=== PATIENT | male | born 1975 | race American Indian/Alaskan Native ===

== ENCOUNTER 2016-11-14 17:54 | Emergency (ER) | payer BC, OTHER ==
[2016-11-14 18:35] VITALS: BP 160/100
== END 2016-11-14 23:45 | disposition left against medical advice (07) ==
LOC: ED 17:54
DX: J02.9 Acute pharyngitis, unspecified (principal); Z53.21 Procedure and treatment not carried out due to patient leaving prior to being seen by health care provider

== ENCOUNTER 2016-11-15 08:02 | Inpatient (IN) | payer SELFPAY ==
[2016-11-15] MEDS ORDERED: NORVASC PO ONE (11:48)
[2016-11-15] MEDS ORDERED: TORADOL IV ONE (13:39)
[2016-11-15] MEDS ORDERED: NACL 0.9% 1000 ML 1,000 ML IV ONE (13:39)
--- NOTE | 2016-11-15 13:41 | Emergency Department Report ---
ED General Adult HPI - General Chief complaint: Sore Throat Stated complaint: SWOLLEN THROAT/LT EAR PAIN Time Seen by Provider: 11/15/16 13:32 Source: patient, RN notes reviewed Mode of arrival: Ambulatory Limitations: No Limitations - History of Present Illness Initial comments: This is a 41-year-old male, previously unknown to me. His primary care doctor is Dr. Weems. He presents to the ER complaining of left-sided neck pain, left- sided neck swelling, for the past 2 days. Symptoms are constant. He denies trismus, he denies malocclusion. He admits to cough and sore throat. He admits to mild left-sided ear discomfort and chewing. Positive sick contacts at home. To me, he denies sudden thunderclap headache. -: Gradual Location: neck Radiation: back Severity scale (0 -10): 9 Quality: aching Consistency: constant Improves with: rest Worsens with: movement Associated Symptoms: cough - Related Data Home Medications Medication Instructions Recorded Confirmed Last Taken Acetaminophen [Tylenol] 500 mg PO Q6HR 11/15/16 11/15/16 11/15/16 09:30 Lisinopril [Zestril TAB] 20 mg PO BID 11/15/16 11/15/16 11/14/16 amLODIPine [Norvasc] 10 mg PO DAILY 11/15/16 11/15/16 11/14/16 Allergies Allergy/AdvReac Type Severity Reaction Status Date / Time No Known Allergies Allergy Unverified 09/08/13 01:53 ED Review of Systems ROS: Stated complaint: SWOLLEN THROAT/LT EAR PAIN Other details as noted in HPI Constitutional: denies: fever ENT: throat pain, congestion Respiratory: see HPI Cardiovascular: denies: chest pain Gastrointestinal: denies: abdominal pain Genitourinary: denies: urgency Musculoskeletal: denies: back pain, joint swelling, arthralgia Skin: denies: rash, lesions Neurological: denies: weakness, numbness, paresthesias, confusion ED Past Medical Hx - Past Medical History Previous Medical History?: Yes Hx Hypertension: Yes - Surgical History Past Surgical History?: No - Social History Smoking Status: Current Every Day Smoker Substance Use Type: Alcohol, Marijuana, Prescribed - Medications Home Medications: Home Medications Medication Instructions Recorded Confirmed Last Taken Type Acetaminophen [Tylenol] 500 mg PO Q6HR 11/15/16 11/15/16 11/15/16 09:30 History Lisinopril [Zestril TAB] 20 mg PO BID 11/15/16 11/15/16 11/14/16 History amLODIPine [Norvasc] 10 mg PO DAILY 11/15/16 11/15/16 11/14/16 History ED Physical Exam - General Limitations: No Limitations General appearance: alert, in no apparent distress - Head Head exam: Present: atraumatic, normocephalic - Eye Eye exam: Present: normal appearance, PERRL, EOMI. Absent: nystagmus - ENT ENT exam: Present: normal exam, normal orophraynx, mucous membranes moist, TM's normal bilaterally, normal external ear exam, other (is no trismus. There is no malocclusion. There is no stridor. The patient is speaking full sentences. He is protecting his airway.) - Neck Neck exam: Present: tenderness, full ROM, lymphadenopathy, other (there is left- sided submandibular swelling, tenderness, possible induration.) - Respiratory Respiratory exam: Present: normal lung sounds bilaterally. Absent: respiratory distress, wheezes, rales, rhonchi, stridor, chest wall tenderness - Cardiovascular Cardiovascular Exam: Present: regular rate, normal rhythm, normal heart sounds, other (tachycardia has resolved on my examination). Absent: bradycardia, tachycardia, irregular rhythm, systolic murmur, diastolic murmur, rubs, gallop - GI/Abdominal GI/Abdominal exam: Present: soft, normal bowel sounds. Absent: distended, tenderness, guarding, rebound, rigid, pulsatile mass - Rectal Rectal exam: Present: deferred - Extremities Exam Extremities exam: Present: normal inspection, full ROM, normal capillary refill. Absent: tenderness, pedal edema, joint swelling, calf tenderness - Back Exam Back exam: Present: normal inspection, full ROM. Absent: tenderness, CVA tenderness (R), CVA tenderness (L), muscle spasm, paraspinal tenderness, vertebral tenderness - Neurological Exam Neurological exam: Present: alert, oriented X3, normal gait, other (Extraocular movements intact. Tongue midline. No facial droop. Facial sensation intact to light touch in the V1, V2, V3 distribution bilaterally. 5 and 5 strength in 4 extremities.. Sensation is intact to light touch in 4 extremities.). Absent : motor sensory deficit - Psychiatric Psychiatric exam: Present: normal affect, normal mood - Skin Skin exam: Present: warm, dry, intact, normal color. Absent: rash ED Course Vital Signs 11/15/16 11/15/16 11/15/16 08:20 11:49 11:58 Temperature 98.7 F Pulse Rate 101 H 92 H 92 H Respiratory 20 20 Rate Blood Pressure 196/133 182/102 Blood Pressure 182/102 [Left] O2 Sat by Pulse 100 99 Oximetry 11/15/16 11/15/16 11/15/16 12:00 13:00 14:00 Temperature Pulse Rate 85 87 91 H Respiratory 18 18 18 Rate Blood Pressure Blood Pressure 162/122 177/109 170/95 [Left] O2 Sat by Pulse 95 98 Oximetry 11/15/16 11/15/16 16:00 17:00 Temperature Pulse Rate 102 H 104 H Respiratory 18 20 Rate Blood Pressure Blood Pressure 156/94 171/84 [Left] O2 Sat by Pulse 97 99 Oximetry - Reevaluation(s) Reevaluation #1: 11/15/16 14:20 Differential diagnosis: Abscess, adenopathy, cellulitis, myositis Assessment and plan: 41-year-old male with left-sided neck pain, swelling, recent sick contacts. Currently suspect the patient most likely has a component of adenopathy. He will be treated symptomatically. He has no acute indication of airway compromise, and there is no foul or fetid odor, and there is no elevation to the base of the mouth. Therefore, I think ludwigs angina is unlikely. Nevertheless, given the clinical and beauty, we will obtain a CAT scan with IV contrast to exclude deep space neck infection/abscess. Hypertension is improved, blood pressures currently in the 160s. Reevaluation #2: 11/15/16 16:36 ct neck shows tonsillitis and possible early abscess formation. there is no stridor, patient is speaking in full sentences and clinically appears well. I have discussed the case with the pickler helper continuous improvement facilitator for primary, Dr. Lori Oliveira. She states that based on his current physical exam findings, laboratory studies, CAT scan findings that he does not require transfer or incision and drainage. Case is discussed with the hospital physician, , who accepts the patient to his service. Patient to be admitted for airway observation, blood pressure control. ED Medical Decision Making - Lab Data Result diagrams: 11/15/16 13:54 11/15/16 13:54 Vital Signs 11/15/16 11/15/16 11/15/16 08:20 11:49 11:58 Temperature 98.7 F Pulse Rate 101 H 92 H 92 H Respiratory 20 20 Rate Blood Pressure 196/133 182/102 Blood Pressure 182/102 [Left] O2 Sat by Pulse 100 99 Oximetry 11/15/16 11/15/16 11/15/16 12:00 13:00 14:00 Temperature Pulse Rate 85 87 91 H Respiratory 18 18 18 Rate Blood Pressure Blood Pressure 162/122 177/109 170/95 [Left] O2 Sat by Pulse 95 98 Oximetry Lab Results 11/15/16 11/15/16 Range/Units 13:54 13:54 WBC 12.3 H (4.5-11.0) K/mm3 RBC 5.17 H (3.65-5.03) M/mm3 Hgb 15.7 H (11.8-15.2) gm/dl Hct 45.6 (35.5-45.6) % MCV 88 (84-94) fl MCH 30 (28-32) pg MCHC 35 H (32-34) % RDW 12.9 L (13.2-15.2) % Plt Count 243 (140-440) K/mm3 Sodium 135 L (137-145) mmol/L Potassium 4.1 (3.6-5.0) mmol/L Chloride 93.7 L (98-107) mmol/L Carbon Dioxide 29 (22-30) mmol/L Anion Gap 16 mmol/L BUN 12 (9-20) mg/dL Creatinine 0.9 (0.8-1.5) mg/dL Estimated GFR > 60 ml/min BUN/Creatinine Ratio 13.33 % Glucose 247 H (75-100) mg/dL Calcium 9.1 (8.4-10.2) mg/dL Total Creatine Kinase 90 (55-170) units/L - Radiology Data Radiology results: report reviewed, image reviewed CAT scan of the neck demonstrates soft tissue swelling in the left tonsillar bed with ill-defined hypodensity, possibly early abscess formation. There is secondary mass effect with extrinsic compression of the airway and shift of the airway from left to right. There are prominence of the local jugular nodes. Minimal left subcutaneous inflammatory changes are noted. Submandibular glands are unremarkable. Critical care attestation.: If time is entered above; I have spent that time in minutes in the direct care of this critically ill patient, excluding procedure time. ED Disposition Clinical Impression: Neck pain, Elevated blood pressure Disposition: OP ADMITTED IP TO THIS HOSP Is pt being admited?: Yes Does the pt Need Aspirin: No Condition: Good Referrals: PRIMARY CARE,MD [Primary Care Provider] - 3-5 Days
[2016-11-15 14:03] LABS: Hematocrit 45.6 % (35.5-45.6); Hemoglobin 15.7 gm/dl (11.8-15.2); Mean Corpuscular HGB Conc 35 % (32-34); Mean Corpuscular Hemoglobin 30 pg (28-32); Mean Corpuscular Volume 88 fl (84-94); Platelet Count 243 K/mm3 (140-440); Red Blood Count 5.17 M/mm3 (3.65-5.03); Red Cell Distribution Width 12.9 % (13.2-15.2); White Blood Count 12.3 K/mm3 (4.5-11.0)
[2016-11-15 14:18] LABS: BUN/Creatinine Ratio 13.33; Blood Urea Nitrogen 12 mg/dL (9-20); Calcium 9.1 mg/dL (8.4-10.2); Carbon Dioxide 29 mmol/L (22-30); Chloride 93.7 mmol/L (98-107); Creatine Kinase 90 units/L (55-170); Glucose 247 mg/dL (75-100); Potassium 4.1 mmol/L (3.6-5.0); Sodium 135 mmol/L (137-145)
[2016-11-15 14:20] LABS: Anion Gap 16 mmol/L
--- NOTE | 2016-11-15 15:51 | Cat Scan Report ---
CT of the neck with IV contrast. Findings: There is extensive soft tissue swelling in the left tonsillar bed with ill-defined hypodensity, possibly early abscess formation. There is secondary mass effect with extrinsic compression of the airway and shift of the airway from left to right. There is prominence of local jugular nodes. Minimal left subcutaneous inflammatory changes are seen just below the inferior pole of the left parotid gland. Small nodes are seen in the posterior triangle bilaterally. The submandibular glands are unremarkable. Small nodes are seen in the submandibular region bilaterally. No glottic or subglottic abnormalities are seen. Impression: Severe left tonsillitis/possible early tonsillar abscess with secondary mass effect including displacement of the airway from left to right. Reactive inflammatory adenopathy is also noted.
[2016-11-15] MEDS ORDERED: DECADRON IV ONE (16:05)
[2016-11-15] MEDS ORDERED: UNASYN 3 GM in NACL 0.9% 50 ML IV ONE (17:00)
[2016-11-15] MEDS ORDERED: UNASYN/NS 3 GM/100 ML 100 ML IV ONE ×2 (17:00→18:00)
--- NOTE | 2016-11-15 18:37 | Event Note ---
Date: 11/15/16 See H/p in reports Peritonsillar abscess HTN Hyperglycemia--Check A1C Dr Brice Quintero consulted for ENT
[2016-11-15] MEDS ORDERED: MILK OF MAGNESIA PO PRN (18:39)
[2016-11-15] MEDS ORDERED: DILAUDID IV PRN ×2 (18:39→19:40)
[2016-11-15] MEDS ORDERED: ZOFRAN IV PRN ×2 (18:39→19:40)
[2016-11-15] MEDS ORDERED: DULCOLAX PR PRN (18:39)
[2016-11-15] MEDS ORDERED: TYLENOL PO PRN (18:39)
[2016-11-15] MEDS ORDERED: PERCOCET 5/325 PO PRN (18:39)
[2016-11-15] MEDS ORDERED: D5/0.45NS 1,000 ML IV SCH (19:00)
[2016-11-15] MEDS ORDERED: ROCEPHIN/NS 2 GM/100 ML 100 ML IV SCH (21:00)
--- NOTE | 2016-11-15 21:32 | History and Physical Report ---
CHIEF COMPLAINT: Left-sided neck pain and left-sided neck swelling for 2 days. HISTORY OF PRESENT ILLNESS: A 41-year-old -Martiniquais male with history of hypertension who comes in for severe sore throat, left-sided neck pain, and left neck swelling. No difficulty swallowing. Also, high-grade fevers present at home. The patient has history of tonsillitis in the past. PAST MEDICAL HISTORY: Significant for hypertension and tonsillitis. CURRENT MEDICATIONS: Lisinopril 20 mg twice a day, amlodipine 10 mg p.o. daily, Tylenol 500 q. 6. PAST SURGICAL HISTORY: None. SOCIAL HISTORY: Smokes about a pack a day, and alcohol and marijuana on occasional basis. FAMILY HISTORY: Significant for hypertension. REVIEW OF SYSTEMS: Significant for sore throat, left-sided neck swelling, and neck pain. No difficulty swallowing. Otherwise, review of systems is essentially negative. PHYSICAL EXAMINATION: GENERAL: Young male, cooperative during examination. VITAL SIGNS: Blood pressure is 162/122, repeat blood pressure is 177/109, temperature is 99, pulse is 85, O2 sats are 95%. HEENT: Unremarkable except for left tonsillar swelling up to crossing the midline. NECK: Jugulodigastric lymph node present on the left side. Right side is normal. No carotid bruit. CHEST AND LUNGS: Clear to auscultation and percussion. CARDIOVASCULAR: S1, S2 heard. No gallop, no murmur, no rub. Apical impulse in left fifth intercostal space and midclavicular line. ABDOMEN: Soft and benign. No hepatosplenomegaly. No guarding, no rigidity. Hernial orifices are normal. EXTREMITIES: Good pedal pulses. No pedal edema. CENTRAL NERVOUS SYSTEM: Alert and oriented x 4, nonfocal exam. SKIN: Normal. LABORATORY DATA AND IMAGING STUDIES: Neck CT was done. Neck CT shows severe left tonsillitis and early tonsillar abscess with secondary mass effect including displacement of the airway from left to right. Reactive inflammatory adenopathy also noted. White count is 12,300, H and H is 15.7 and 45.6, platelet count is . Sodium is 135, potassium is 4.1, chloride is 93.7, BUN and creatinine is 12 and 0.9, glucose is 247, calcium is 9.1, total creatinine kinase is 90. ASSESSMENT AND PLAN: 1. Peritonsillar abscess with severe tonsillitis. The patient was given one dose of Unasyn in the ER, but I started him on Rocephin 2 grams IV piggyback q. 24 along with Decadron 8 mg q. 8 hours to decrease the swelling. The patient was given Decadron 10 mg IV x 1 in the ER. 2. Hypertension, uncontrolled. The patient started back on lisinopril 20 mg q.12 and amlodipine 10 mg. We will add Coreg 6.25 q. 12. 3. Hyperglycemia. We will check hemoglobin A1c. The patient may have early diabetes. Check A1c and start him on oral hypoglycemics if necessary. We will continue Accu-Cheks in the meantime. Also, the patient's blood sugars may go up because of the Decadron. We will do the Decadron for only 3 doses. 4. Deep venous thrombosis prophylaxis, Lovenox 40 mg subcutaneous daily. [facility]# [id number] POLLY/ANIA
[2016-11-15] MEDS ORDERED: LOVENOX SUB-Q SCH (22:00)
[2016-11-15] MEDS: DECADRON IV SCH (22:05)
[2016-11-15] MEDS: COREG PO SCH (22:10)
[2016-11-15] MEDS: NOVOLOG SUB-Q SCH (23:47)
[2016-11-16] MEDS: DECADRON IV SCH (04:54)
[2016-11-16 06:37] LABS: Basophils % (Auto) 0.3 % (0.0-1.8); Hematocrit 43.4 % (35.5-45.6); Hemoglobin 15.4 gm/dl (11.8-15.2); Mean Corpuscular HGB Conc 35 % (32-34); Mean Corpuscular Hemoglobin 31 pg (28-32); Mean Corpuscular Volume 88 fl (84-94); Platelet Count 265 K/mm3 (140-440); Red Blood Count 4.95 M/mm3 (3.65-5.03); Red Cell Distribution Width 13.1 % (13.2-15.2)
[2016-11-16 06:57] LABS: Alanine Aminotransferase 18 units/L (7-56); Albumin 3.7 g/dL (3.9-5); Albumin/Globulin Ratio 0.9 %; Alkaline Phosphatase 114 units/L (35-129); BUN/Creatinine Ratio 17.77; Bilirubin,Total 0.3 mg/dL (0.1-1.2); Blood Urea Nitrogen 16 mg/dL (9-20); Calcium 8.9 mg/dL (8.4-10.2); Carbon Dioxide 28 mmol/L (22-30); Glucose 271 mg/dL (75-100); Total Protein 7.7 g/dL (6.3-8.2)
[2016-11-16 06:58] LABS: Anion Gap 17 mmol/L; Chloride 95.5 mmol/L (98-107); Potassium 4.2 mmol/L (3.6-5.0); Sodium 136 mmol/L (137-145)
[2016-11-16] MEDS: NOVOLOG SUB-Q SCH ×2 (08:31→12:56)
[2016-11-16] MEDS: COREG PO SCH (10:12)
--- NOTE | 2016-11-16 11:01 | Discharge Summary ---
Providers - Providers Date of Admission: 11/15/16 18:39 Date of discharge: 11/16/16 Attending physician: YAN JORDAN MD 11/15/16 19:55 Consult to Physician [CONS] Routine Consulting Provider: JW HOOKS Reason For Exam: Peritonsillar abscess Primary care physician: EXPRESSIVE MUSIC THERAPIST Hospitalization Reason for admission: left-sided neck pain and swelling Condition: Stable Hospital course: Patient is a 41-year-old male with history of hypertension who presented to the hospital with severe sore throat for about 2 days noted to have left-sided neck pain and swelling which also affected his swallowing but no shortness of breath. He did have some high fevers at home has a history of tonsillitis in the past. On presenting to the ER he was noted to have a peritonsillar abscess with severe tonsillitis a discussion was had with surgery from ENT and is additionally indication at this time for incision and drainage. Patient was started on IV antibiotics and today's doing very well swallowing well again not compromising his respiratory status and breathing is stable. He did have uncontrolled hypertension for which the patient was restarted on blood pressure control with improvement of recommended outpatient follow-up with his primary care physician compliance with his blood pressure. His blood sugar was also elevated he is unsure about his diet diabetes status. I did discuss with him and A1c have been ordered on admission result is not available at this point patient is to follow up this result with his PCP. Also discussed with him. His primary care to repeat his blood sugar to assure he is not diabetic. Again patient was discharged on antibiotics and steroid taper. Discharge diagnosis * Peritonsillar abscess with tonsillitis * Sepsis secondary to above * Hyperglycemia * Hypertension Disposition: DISCHARGED TO HOME OR SELFCARE Time spent for discharge: 35 mins Core Measure Documentation - Palliative Care Palliative Care/ Comfort Measures: Not Applicable - Core Measures Any of the following diagnoses?: none - VTE Discharge Requirements Deep Vein Thrombosis/Pulmonary Embolism Present on Admission: No Exam - Physical Exam Narrative exam: VITAL SIGNS: Reviewed. GENERAL: The patient appeared well nourished and normally developed. Vital signs as documented. HEAD: No signs of head trauma. EYES: Pupils are equal. Extraocular motions intact. EARS: Hearing grossly intact. MOUTH: Oropharynx is normal. NECK: No adenopathy, no JVD. CHEST: Chest with clear breath sounds bilaterally. No wheezes, rales, or rhonchi. CARDIAC: Regular rate and rhythm. S1 and S2, without murmurs, gallops, or rubs. VASCULAR: No Edema. Peripheral pulses normal and equal in all extremities. ABDOMEN: Soft, without detectable tenderness. No sign of distention. No rebound or guarding, and no masses palpated. Bowel Sounds normal. MUSCULOSKELETAL: Good range of motion of all major joints. Extremities without clubbing, cyanosis or edema. NEUROLOGIC EXAM: Alert and oriented x 3. No focal sensory or strength deficits. Speech normal. Follows commands. PSYCHIATRIC: Mood normal. SKIN: No rash or lesions. - Constitutional Vitals: Temp Pulse Resp BP Pulse Ox 97.6 F 85 16 171/105 94 11/16/16 07:25 11/16/16 10:12 11/16/16 07:25 11/16/16 10:12 11/16/16 07:25 Plan Activity: advance as tolerated Diet: thickened liquids, advance as tolerated Follow up with: PRIMARY CARE, [Primary Care Provider] - 3-5 Days Forms: Work/School Release Form Prescriptions: Clindamycin [Clindamycin CAP] 450 mg PO Q8HR 7 Days Prednisone [predniSONE 5 mg (6-Day Pack, 21 Tabs)] 5 mg PO .TAPER #1 tab.ds.pk
[2016-11-16 12:32] VITALS: BP 164/100
== END 2016-11-16 13:26 | disposition home or self-care (01) | DRG 153 ==
LOC: ED 08:02 → 3A 18:39
PROVIDERS: ADMIT Internal Medicine; ATTEND Internal Medicine
DX: J36 Peritonsillar abscess (principal); M54.2 Cervicalgia; I10 Essential (primary) hypertension; F17.200 Nicotine dependence, unspecified, uncomplicated; R73.9 Hyperglycemia, unspecified; Z82.49 Family history of ischemic heart disease and other diseases of the circulatory system
CPT/HCPCS: 36415; 70491; 80048; 80053; 82550; 82962; 83036; 85025; 85027; 96361; 96365; 96375; J0295; J0696; J1100; J1650; J1815; J1885; J7030; Q9967